=== PATIENT | female | born 1940 | race Caucasian/White ===

== ENCOUNTER → 2016-07-27 | Outpatient (CLI) | payer OTHER | END | disposition home or self-care (01) | LOC: C.LABSPEC 16:43 | PROVIDERS: ATTEND Podiatrist Foot & Ankle Surgery | DX: L60.0 Ingrowing nail (principal) ==

== ENCOUNTER → 2016-08-20 | Outpatient (CLI) | payer OTHER | END | disposition home or self-care (01) | LOC: C.LABSPEC 16:57 | PROVIDERS: ATTEND Podiatrist Foot & Ankle Surgery | DX: L60.0 Ingrowing nail (principal) ==

== ENCOUNTER → 2017-06-18 | Outpatient (CLI) | payer OTHER ==
[~2017-06-18] MED LIST: ASCA500; CALC500C70 PO; CHOL400C7 PO; DICL50TA3 PO; MULT-506 PO; OMEG10007 PO
== END | disposition home or self-care (01) ==
LOC: C.MAMM 11:59
PROVIDERS: ATTEND Nurse Practitioner Family
DX: Z13.820 Encounter for screening for osteoporosis (principal); Z78.0 Asymptomatic menopausal state; M85.89 Other specified disorders of bone density and structure, multiple sites

== ENCOUNTER 2017-07-23 13:20 | Inpatient (IN) | payer OTHER ==
[~2017-07-23] VITALS: Ht 172.7 cm; Wt 104.1 kg
--- NOTE | 2017-07-23 14:04 | DIAGNOSTIC IMAGING REPORT ---
CHEST ONE VIEW PORTABLE CLINICAL HISTORY: 76 years-old Female presenting with palps. TECHNIQUE: Portable upright AP view of the chest was obtained. COMPARISON: 05/30/2015. FINDINGS: Atherosclerosis of aortic arch. Cardiac silhouette enlarged. Mild prominence of pulmonary vasculature. Mildly low lung volumes with hypoventilatory changes. No focal opacity. No large effusion or pneumothorax. Osseous structures normal. IMPRESSION: 1. Mild prominence of pulmonary vasculature could suggest volume overload or elevated left heart pressure. 2. Mildly low lung volumes with hypoventilatory changes. Electronically signed by: Buddy Benitez M.D. 07/23/2017 2:02 PM Dictated Date/Time: 07/23/2017 2:01 PM
[2017-07-23 14:10] LABS: BASO % 0.2 %; BASO ABS # 0.03 K/uL (0-0.2); EOS % 0.4 %; EOS ABS # 0.05 K/uL (0-0.5); HEMATOCRIT 46.4 % (37-47); HEMOGLOBIN 16.4 g/dL (12.0-16.0); IG# 0.05 K/uL (0.00-0.02); LYMPH ABS # 3.03 K/uL (1.2-3.4); MEAN CELL VOLUME 91.7 fL (80-100); MEAN CORPUSCULAR HEMOGLOBIN 32.4 pg (25-34); MEAN CORPUSCULAR HGB CONC 35.3 g/dl (32-36); MEAN PLATELET VOLUME 9.7 fL (7.4-10.4); MONO % 9.3 %; MONO ABS # 1.23 K/uL (0.11-0.59); NEUT % 66.7 %; NEUT ABS # 8.78 K/uL (1.4-6.5); PLATELET COUNT 359 K/uL (130-400); RED CELL DISTRIBUTION WIDTH CV 14.2 % (11.5-14.5); RED CELL DISTRIBUTION WIDTH SD 47.3 fL (36.4-46.3); WHITE BLOOD COUNT 13.17 K/uL (4.8-10.8)
[2017-07-23 14:18] LABS: PTT PATIENT 26.4 SECONDS (21.0-31.0)
[2017-07-23 14:27] LABS: ALBUMIN 3.6 gm/dl (3.4-5.0); ALT/SGPT 88 U/L (12-78); BLOOD UREA NITROGEN 20 mg/dl (7-18); CALCIUM 9.3 mg/dl (8.5-10.1); CARBON DIOXIDE 25 mmol/L (21-32); CREATININE 0.88 mg/dl (0.60-1.20); GLUCOSE 134 mg/dl (70-99); LIPASE 292 U/L (73-393); POTASSIUM 4.4 mmol/L (3.5-5.1); SODIUM 137 mmol/L (136-145)
--- NOTE | 2017-07-23 14:29 | EMERGENCY ROOM VISIT NOTE ---
History Report prepared by Crow: Nati Victor Under the Supervision of: Dr. Jonny Corado D.O. First contact with patient: 13:22 Stated Complaint: CHEST PAIN History of Present Illness The patient is a 76 year old female who presents to the Emergency Room with complaints of constant heart palpitations beginning three days ago. The patient went to her PCP this morning and was found to be in rapid atrial fibrillation and was referred to come to the ED. The patient denies any previous history of atrial fibrillation. The patient was given Cardizem in route to the ED. The patient states she had two Cortizone shots in her hip last week. She notes shortness of breath, chest discomfort, and hot flashes at night but denies any swelling in her legs. Presently, the patient denies any chest pain. 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 Source of History: patient Onset: three days ago Position: other (generalized) Quality: other (palpitations) Timing: constant Associated Symptoms: + chest pain, + SOB Review of Systems See HPI for pertinent positives & negatives. A total of 10 systems reviewed and were otherwise negative. Past Medical & Surgical Medical Problems: (1) Arthritis of spine (2) New onset a-fib (3) New onset a-fib Family History Patient reports no known family medical history. Social History Smoking Status: Never Smoker Marital Status: Occupation Status: retired Current/Historical Medications Scheduled Ascorbic Acid (Vitamin C), DAILY Calcium/Vitamin D (Os-Adam 500 Plus D), 1 TAB PO DAILY Cholecalciferol (Vitamin D 400 Iu), 400 INTER.UNIT PO DAILY Diclofenac (Voltaren), 50 MG PO BID Fish Oil ([place]-3), 1 CAP PO DAILY Multivitamin (Multivitamin), 1 TAB PO DAILY Allergies Coded Allergies: No Known Allergies (Unverified , 07/18/17) Physical Exam Vital Signs Date Time Temp Pulse Resp B/P (MAP) Pulse Ox O2 Delivery O2 Flow Rate FiO2 07/23/17 15:37 77 24 98 07/23/17 15:32 120/88 07/23/17 15:25 88 20 98 07/23/17 15:01 146/115 07/23/17 14:55 84 25 98 07/23/17 14:42 132/92 07/23/17 14:25 88 21 98 07/23/17 14:21 96 Room Air 07/23/17 14:20 95 25 98 07/23/17 14:07 95 07/23/17 13:29 36.6 96 31 137/115 96 Room Air 07/23/17 13:26 137/115 Physical Exam GENERAL: Patient is awake, alert, and in no acute distress. Patient is resting comfortably and showing no signs of anxiety EYES: The conjunctivae are clear. The pupils are round and reactive. EARS, NOSE, MOUTH AND THROAT: The nose is without any evidence of any deformity. Mucous membranes are moist tongue is midline NECK: The neck is nontender and supple. RESPIRATORY: Normal respiratory effort is noted there is no evidence of wheezing rhonchi or rales CARDIOVASCULAR: Regular rate and irregular rhythm noted there no murmurs rubs or gallops normal S1 normal S2 GASTROINTESTINAL: The abdomen is soft. Bowel sounds are present in all quadrants. Abdomen is nontender MUSCULOSKELETAL/EXTREMITIES: There is no evidence of gross deformity full range of motion is noted in the hips and shoulders SKIN: There is no obvious evidence of any rash. There are no petechiae, pallor or cyanosis noted. Trace pedal edema bilaterally. NEUROLOGIC: Patient is awake alert and oriented x3 Medical Decision & Procedures ER Provider Diagnostic Interpretation: Radiology results as stated below per my review and radiologist interpretation: CHEST ONE VIEW PORTABLE FINDINGS: Atherosclerosis of aortic arch. Cardiac silhouette enlarged. Mild prominence of pulmonary vasculature. Mildly low lung volumes with hypoventilatory changes. No focal opacity. No large effusion or pneumothorax. Osseous structures normal. IMPRESSION: 1. Mild prominence of pulmonary vasculature could suggest volume overload or elevated left heart pressure. 2. Mildly low lung volumes with hypoventilatory changes. Electronically signed by: Buddy Benitez M.D. Laboratory Results Test 07/23/17 13:51 Prothrombin Time 10.1 SECONDS (9.0-12.0) Prothromb Time International Ratio 1.0 (0.9-1.1) Direct Bilirubin < 0.1 mg/dl (0-0.2) Total Creatine Kinase 35 U/L (26-192) Creatine Kinase MB 1.0 ng/ml (0.5-3.6) Creatine Kinase MB Ratio 2.9 (0-3.0) Triglycerides Level 183 mg/dl (0-150) Cholesterol Level 225 mg/dl (0-200) HDL Cholesterol 52 mg/dl LDL Cholesterol, Calculated 136 mg/dl VLDL Cholesterol, Calculated 37 mg/dl Cholesterol/HDL Ratio 4.3 Lipase 292 U/L (73-393) Thyroid Stimulating Hormone (TSH) 0.964 uIu/ml (0.300-4.500) Free Thyroxine 1.24 ng/dl (0.80-1.60) Laboratory results per my review. Medications Administered Medications (Trade) Dose Ordered Sig/Karyn Route Start Time Stop Time Status Last Admin Dose Admin Sodium Chloride 1,000 ml @ 50 mls/hr Q20H IV 07/23/17 15:42 08/22/17 15:41 07/23/17 17:27 50 MLS/HR ECG Per My Interpretation Indication: palpitations Rate (beats per minute): 92 Rhythm: atrial fibrillation Findings: other (no PVC, resolution of previous noted ST depressions ) Comparison ECG Date: 06/20/06 Change: changes are new. 12 Lead EKG at PCP office: atrial fibrillation 153 bpm, Diffuse ST segment depression, no PVC. Ambulance prehospital EKG: atrial fibrillation 158 bpm, Diffuse ST segment depression, no PVC. ED Course 1335: The patient was evaluated in room B6. A complete history and physical examination were performed. 1454: I updated the patient on her test results. She is agreeable to the treatment plan. 1503: I discussed the patient's case [place]hawn [place] [place] The patient will be evaluated for further management. Medical Decision Differential diagnosis: Etiologies such as premature contractions, electrolyte abnormality, cardiac dysrhythmia, thyroid dysfunction, pulmonary embolism, infection, gastrointestinal, as well as others were entertained. Nursing notes reviewed. Additional history is obtained from the prehospital personnel. The patient's information from the primary care physician's office was also reviewed. The patient is a 76-year-old female who had palpitations over the last few days. She has no history of atrial fibrillation and was sent to the emergency department because of new onset atrial fibrillation with rapid ventricular response. Her initial EKG showed ST segment abnormalities which I feel are consistent with rate related ischemia. I discussed the patient's laboratory and radiographic studies with her. I ordered IV Cardizem to be given to the patient while she was en route via medic command phone call with the prehospital personnel. The patient's symptoms significantly improved upon arrival. Her ST segment abnormalities improved as well. I discussed the patient's laboratory and radiographic studies with her. I discussed her case with the on-call [facility] hospitalist group. They have agreed to evaluate the patient in the emergency department for further management and disposition. Medication Reconcilliation Current Medication List: was personally reviewed by me Blood Pressure Screening Patient's blood pressure: Elevated blood pressure Blood pressure disposition: Elevated BP felt to be situational Consults Time Called: [phone] Consulting Physician: Dr. Rayshawn Haq Returned Call: [phone] I discussed the patient's case with Dr. Rayshawn Haq. The patient will be evaluated for further management. Impression Primary Impression: Atrial fibrillation with rapid ventricular response Scribe Attestation The scribe's documentation has been prepared under my direction and personally reviewed by me in its entirety. I confirm that the note above accurately reflects all work, treatment, procedures, and medical decision making performed by me. Departure Information Dispostion Being Evaluated By Hospitalist Referrals Sofia Han (PCP)
[2017-07-23 14:36] LABS: ALKALINE PHOSPHATASE 135 U/L (45-117); AST/SGOT 32 U/L (15-37); TOTAL PROTEIN 7.8 gm/dl (6.4-8.2)
[2017-07-23] MEDS ORDERED: SODIUM CHLORIDE 0.9% 1000ML 1,000 ML IV SCH (15:42)
[2017-07-23] MEDS ORDERED: POLYETHYLENE (MIRALAX) 17 GM PACK PO PRN (15:45)
[2017-07-23] MEDS ORDERED: NITROGLYCERIN 0.4 MG SL PER TAB CHARGE SL PRN (15:45)
[2017-07-23] MEDS ORDERED: ZOLPIDEM TARTRATE 5 MG TAB PO PRN ×2 (15:45)
[2017-07-23] MEDS ORDERED: ONDANSETRON INJ 2 MG/ML 2 ML VIAL IV PRN (15:45)
[2017-07-23] MEDS ORDERED: ALUMINUM/MAGNESIUM/SIMETH (MAALOX MAX) 30 ML UDC PO PRN (15:45)
[2017-07-23] MEDS ORDERED: MAGNESIUM HYDROXIDE SUSP 30 ML UDC PO PRN (15:45)
[2017-07-23] MEDS ORDERED: ACETAMINOPHEN 325 MG TAB PO PRN (15:45)
[2017-07-23] MEDS ORDERED: DILTIAZEM BOLUS / DRIP IV SCH (16:00)
--- NOTE | 2017-07-23 16:07 | History and Physical ---
History & Physical Date & Time of Service: Jul 23, 2017 at 15:52 Chief Complaint: Chest Pain Primary Care Physician: Sofia Han History of Present Illness Source: patient, family, hospital records 76-year-old female with past medical history of arthritis and moderate obesity presented to the hospital with new onset atrial fibrillation with RVR. Patient had to cortisol shots in the pain clinic one was on July 18 and one was 2 days ago. Said that she developed some palpitation about 4 days ago. Associated with dizziness, chest heaviness 4 out of 10, and shortness of breath. The palpitation episodes comes and goes there is no relieving or aggravating factors. For her second cortisone shot she mentioned that to the pain management physician who told her to go to her primary care physician and get an EKG. Patient went today to her primary care physician to get an EKG and was found to have new onset atrial fibrillation with RVR. She was sent to the hospital for further evaluation. Her pressure was noticed to be borderline elevated in ED She does not smoke or drink Has strong family history of diabetes but no family history of heart disease Family History Patient reports no known family medical history. Social History Smoking Status: Never Smoker Marital Status: Housing status: lives alone Occupational Status: retired Multi-Drug Resistant Organisms History of MDRO: No Allergies Coded Allergies: No Known Allergies (Unverified , 07/18/17) Home Medications Scheduled Ascorbic Acid (Vitamin C), DAILY Calcium/Vitamin D (Os-Adam 500 Plus D), 1 TAB PO DAILY Cholecalciferol (Vitamin D 400 Iu), 400 INTER.UNIT PO DAILY Diclofenac (Voltaren), 50 MG PO BID Fish Oil ([place]-3), 1 CAP PO DAILY Multivitamin (Multivitamin), 1 TAB PO DAILY Review of Systems Review of system Constitutional: No fever / no chills / no sweats / no weakness / no fatigue Eyes: no blurring of vision / no eye pain / no discharge / no redness ENT: no hearing loss / no epistaxis /no swallowing problems Respiratory: no cough / no wheezing / no SOB / no hemoptysis Cardiovascular: As mentioned in HPI, palpitation associated with shortness of breath and chest heaviness n Abdomen: no pain / no nausea / no vomiting / no constipation Musculoskeletal: no joint pain / no muscle pain / no joint swelling Genitourinary: no dysuria / no incontinence / no urinary retention Neurologic: no focal weakness / no numbness/tingling / no ataxia Psychiatric: no depression symptoms / no anxiety / no insomnia Endocrine: no excessive thirst / no excessive urination Hematologic: no abnormal bleeding / no bruising / no LN swelling Skin: No rash / no pallor Physical Exam Vital Signs Date Time Temp Pulse Resp B/P (MAP) Pulse Ox O2 Delivery O2 Flow Rate FiO2 07/23/17 14:21 96 Room Air 07/23/17 14:20 95 25 98 07/23/17 14:07 95 07/23/17 13:29 36.6 96 31 137/115 96 Room Air 07/23/17 13:26 137/115 Physical examination General patient appears to be comfortable, not in acute distress HEENT: Atraumatic , normocephalic /no jaundice /no pallor /anicteric /no dry mucous membrane /normal external ear inspection Neck: Supple /no swelling /central trach Heart: Irregular irregularity with tachycardia/no gallop /no rub /no murmur Lungs: Clear to auscultation bilaterally/normal chest with expansion/no rhonchi/ no rales/no wheezing/no use of accessory muscles of respiration Abdomen: Soft/nontender/no guarding/no rebound/no organomegaly/no pulsatile mass Musculoskeletal: No swelling/no edema/no tenderness/normal range of motion Neuro exam: Awake alert oriented 3/cranial nerves II through XII appear to be intact/sensation intact/moves all extremities/no abnormal movements Psychiatric evaluation: No depressed mood/normal affect Skin: No rash on exposed skin area/no erythema Extremity: Normal pulse/no pitting edema/no clubbing or cyanosis Endocrine/lymphatic: No obvious lymphadenopathy /no lymphedema Diagnostics Laboratory Results Results Past 24 Hours Test 07/23/17 13:51 07/23/17 15:42 Range/Units White Blood Count 13.17 4.8-10.8 K/uL Red Blood Count 5.06 4.2-5.4 M/uL Hemoglobin 16.4 12.0-16.0 g/dL Hematocrit 46.4 37-47 % Mean Corpuscular Volume 91.7 80-100 fL Mean Corpuscular Hemoglobin 32.4 25-34 pg Mean Corpuscular Hemoglobin Concent 35.3 32-36 g/dl Platelet Count 359 130-400 K/uL Mean Platelet Volume 9.7 7.4-10.4 fL Neutrophils (%) (Auto) 66.7 % Lymphocytes (%) (Auto) 23.0 % Monocytes (%) (Auto) 9.3 % Eosinophils (%) (Auto) 0.4 % Basophils (%) (Auto) 0.2 % Neutrophils # (Auto) 8.78 1.4-6.5 K/uL Lymphocytes # (Auto) 3.03 1.2-3.4 K/uL Monocytes # (Auto) 1.23 0.11-0.59 K/uL Eosinophils # (Auto) 0.05 0-0.5 K/uL Basophils # (Auto) 0.03 0-0.2 K/uL RDW Standard Deviation 47.3 36.4-46.3 fL RDW Coefficient of Variation 14.2 11.5-14.5 % Immature Granulocyte % (Auto) 0.4 % Immature Granulocyte # (Auto) 0.05 0.00-0.02 K/uL Prothrombin Time 10.1 9.0-12.0 SECONDS Prothromb Time International Ratio 1.0 0.9-1.1 Activated Partial Thromboplast Time 26.4 21.0-31.0 SECONDS Partial Thromboplastin Ratio 1.0 Sodium Level 137 136-145 mmol/L Potassium Level 4.4 3.5-5.1 mmol/L Chloride Level 106 98-107 mmol/L Carbon Dioxide Level 25 21-32 mmol/L Anion Gap 6.0 3-11 mmol/L Blood Urea Nitrogen 20 7-18 mg/dl Creatinine 0.88 0.60-1.20 mg/dl Est Creatinine Clear Calc Drug Dose 70.2 ml/min Estimated GFR () 74.5 Estimated GFR (Non- 64.3 BUN/Creatinine Ratio 22.6 10-20 Random Glucose 134 70-99 mg/dl Calcium Level 9.3 8.5-10.1 mg/dl Magnesium Level 2.4 1.8-2.4 mg/dl Total Bilirubin 0.4 0.2-1 mg/dl Direct Bilirubin < 0.1 0-0.2 mg/dl Aspartate Amino Transf (AST/SGOT) 32 15-37 U/L Alanine Aminotransferase (ALT/SGPT) 88 12-78 U/L Alkaline Phosphatase 135 45-117 U/L Total Creatine Kinase 35 26-192 U/L Creatine Kinase MB 1.0 0.5-3.6 ng/ml Creatine Kinase MB Ratio 2.9 0-3.0 Troponin I < 0.015 0-0.045 ng/ml Total Protein 7.8 6.4-8.2 gm/dl Albumin 3.6 3.4-5.0 gm/dl Lipase 292 73-393 U/L Thyroid Stimulating Hormone (TSH) 0.964 0.300-4.500 uIu/ml Free Thyroxine 1.24 0.80-1.60 ng/dl Diagnostic Radiology EKG showed atrial fibrillation with some nonspecific ST-T wave changes Impression Assessment and Plan 76-year-old female presented to the emergency room with new onset atrial fibrillation with RVR Assessment New onset atrial fibrillation with RVR Borderline elevated blood pressure Arthritis Mild obesity Clinically suspected obstructive sleep apnea Plan Admit patient to telemetry under observation status Order 2D echo Discussed with patient benefits and risks of anticoagulation, will start with heparin drip, and be switched to Eliquis before the Start patient on rate controlling agents, Cardizem drip plus oral metoprolol, can be switched to Toprol XL before discharge obtain serial cardiac enz NTG SL/topical prn CP consult desk clerks supervisor pain management Check hemoglobin A1c/lipids to stratify patient risk factors repeat EKG prn chest pain Resuscitation Status FULL RESUSCITATION VTE Prophylaxis VTE Risk Assessment Done? Y/N: Yes Risk Level: Moderate
[2017-07-23 16:25] VITALS: BP 151/83; PULSE 126; TEMP 36.6; O2SAT 95; BMI 35.5
[2017-07-23] MEDS ORDERED: IV FLUIDS COMPLETED PRN (16:30)
[2017-07-23] MEDS ORDERED: HEPARIN IV BOLUS 6,000 UNIT in SYRINGE 0 ML IV ONE (17:30)
[2017-07-23] MEDS: HEPARIN 25,000 UNIT/500ML D5W 500 ML IV PRN (17:36)
[2017-07-23] MEDS: DILTIAZEM HCL INJ 125 MG in DEXTROSE 5% 100ML IV PRN (17:37)
[2017-07-23 19:45] VITALS: BP 107/70; PULSE 76; TEMP 36.5; O2SAT 92
[2017-07-23] MEDS: METOPROLOL TARTRATE 50 MG TAB PO SCH (22:07)
[2017-07-23 23:56] VITALS: BP 106/60; PULSE 74; TEMP 36.6; O2SAT 95
[2017-07-23 23:59] VITALS: O2SAT 95
[2017-07-24] VITALS (9 sets, daily range): BP systolic 110–137; BP diastolic 70–87; PULSE 66–104; TEMP 36.4–37; O2SAT 93–97; Ht 172.7 cm; Wt 104.1 kg
[2017-07-24 00:44] LABS: PTT PATIENT 47.1 SECONDS (21.0-31.0)
[2017-07-24] MEDS: HEPARIN 25,000 UNIT/500ML D5W 500 ML IV PRN ×2 (06:56→09:44)
[2017-07-24 07:08] LABS: BASO % 0.2 %; BASO ABS # 0.03 K/uL (0-0.2); EOS % 0.4 %; EOS ABS # 0.06 K/uL (0-0.5); HEMATOCRIT 46.1 % (37-47); HEMOGLOBIN 15.9 g/dL (12.0-16.0); IG# 0.04 K/uL (0.00-0.02); LYMPH % 24.4 %; LYMPH ABS # 3.32 K/uL (1.2-3.4); MEAN CELL VOLUME 91.1 fL (80-100); MEAN CORPUSCULAR HEMOGLOBIN 31.4 pg (25-34); MEAN CORPUSCULAR HGB CONC 34.5 g/dl (32-36); MEAN PLATELET VOLUME 9.7 fL (7.4-10.4); MONO % 6.3 %; MONO ABS # 0.86 K/uL (0.11-0.59); NEUT % 68.4 %; NEUT ABS # 9.28 K/uL (1.4-6.5); PLATELET COUNT 372 K/uL (130-400); RED CELL DISTRIBUTION WIDTH CV 14.3 % (11.5-14.5); RED CELL DISTRIBUTION WIDTH SD 47.7 fL (36.4-46.3); WHITE BLOOD COUNT 13.59 K/uL (4.8-10.8)
[2017-07-24] MEDS ORDERED: PERFLUTREN LIPID MICROSPHERE (DEFINITY) IV ONE (07:24)
[2017-07-24 07:44] LABS: ALBUMIN 3.7 gm/dl (3.4-5.0); CALCIUM 9.2 mg/dl (8.5-10.1); CREATININE 0.83 mg/dl (0.60-1.20); POTASSIUM 4.2 mmol/L (3.5-5.1)
[2017-07-24 07:47] LABS: PHOSPHORUS 3.2 mg/dl (2.5-4.9); TOTAL PROTEIN 7.9 gm/dl (6.4-8.2)
--- NOTE | 2017-07-24 08:26 | Hospitalist Progress Note ---
Hospitalist Progress Note Date of Service Jul 24, 2017. (Brittany Marroquin PA-C) Subjective Pt evaluation today including: conversation w/ patient, conversation w/ family , physical exam, chart review, lab review, review of studies Pain: None PO Intake: Good Voiding: no voiding problems The patient was seen and examined this morning. Pt reports doing well today, but that she has felt an occasional flutter in her chest. She denies any palpitations, chest pain or shortness of breath. She reports not sleeping well last night and is requesting a sleep aid. She has used tylenol pm at home. Pt notes she has felt palpitation in her chest for several days this past week when she lays down to go to bed. She is agreeable to trying ambien louissindhu. Her daughter is present with her at bedside and all their questions and concerns were addressed. Discussion was also held regarding anticoagulation and the cost of copay for Eliquis. She is willing to pay out of pocket $100 per month for Eliquis vs coumadin and INR checks. Constitutional: No fever, No chills, No sweats, No fatigue Eyes: No redness, No diplopia ENT: No nasal symptoms, No sore throat Respiratory: No cough, No sputum, No shortness of breath Cardiovascular: + problem reported (occasional flutter), No chest pain, No palpitations Abdomen: No pain, No nausea, No vomiting, No diarrhea, No constipation Musculoskeletal: No joint pain, No muscle pain, No swelling Female : No dysuria Neurologic: No weakness, No numbness/tingling Psychiatric: No depression symptoms, No anxiety Endo: No fatigue (Brittany Marroquin PA-C) Objective Vital Signs Date Time Temp Pulse Resp B/P (MAP) Pulse Ox O2 Delivery O2 Flow Rate FiO2 07/24/17 07:45 36.5 100 18 110/70 (83) 93 07/24/17 04:00 Room Air 07/24/17 03:34 36.4 104 18 118/71 (87) 93 Room Air 07/23/17 23:59 95 Room Air 07/23/17 23:56 36.6 74 18 106/60 (75) 95 Room Air 07/23/17 20:03 Room Air 07/23/17 19:45 36.5 76 17 107/70 (82) 92 Room Air 07/23/17 16:40 36.6 105 24 126/99 98 07/23/17 16:25 36.6 126 18 151/83 95 Room Air 07/23/17 16:14 105 24 126/99 98 Room Air 07/23/17 15:37 77 24 98 07/23/17 15:32 120/88 07/23/17 15:25 88 20 98 07/23/17 15:01 146/115 07/23/17 14:55 84 25 98 07/23/17 14:42 132/92 07/23/17 14:25 88 21 98 07/23/17 14:21 96 Room Air 07/23/17 14:20 95 25 98 07/23/17 14:07 95 07/23/17 13:29 36.6 96 31 137/115 96 Room Air 07/23/17 13:26 137/115 (Brittany Marroquin PA-C) Physical Exam General Appearance: WD/WN, no apparent distress Eyes: PERRL, EOMI ENT: hearing grossly normal, pharynx normal Neck: no adenopathy, no JVD Respiratory/Chest: lungs clear, no respiratory distress, no accessory muscle use Cardiovascular: no JVD, no murmur, + irregularly irregular (rate controlled in 90s ) Abdomen: normal bowel sounds, non tender, soft Extremities: non-tender, no pedal edema, no calf tenderness Neurologic/Psychiatric: alert, normal mood/affect, oriented x 3 Skin: normal color, warm/dry (Brittany Marroquin PA-C) Laboratory Results Last 24 Hours Test 07/23/17 13:51 07/23/17 18:21 07/24/17 00:09 07/24/17 06:31 White Blood Count 13.17 K/uL 13.59 K/uL Red Blood Count 5.06 M/uL 5.06 M/uL Hemoglobin 16.4 g/dL 15.9 g/dL Hematocrit 46.4 % 46.1 % Mean Corpuscular Volume 91.7 fL 91.1 fL Mean Corpuscular Hemoglobin 32.4 pg 31.4 pg Mean Corpuscular Hemoglobin Concent 35.3 g/dl 34.5 g/dl Platelet Count 359 K/uL 372 K/uL Mean Platelet Volume 9.7 fL 9.7 fL Neutrophils (%) (Auto) 66.7 % 68.4 % Lymphocytes (%) (Auto) 23.0 % 24.4 % Monocytes (%) (Auto) 9.3 % 6.3 % Eosinophils (%) (Auto) 0.4 % 0.4 % Basophils (%) (Auto) 0.2 % 0.2 % Neutrophils # (Auto) 8.78 K/uL 9.28 K/uL Lymphocytes # (Auto) 3.03 K/uL 3.32 K/uL Monocytes # (Auto) 1.23 K/uL 0.86 K/uL Eosinophils # (Auto) 0.05 K/uL 0.06 K/uL Basophils # (Auto) 0.03 K/uL 0.03 K/uL RDW Standard Deviation 47.3 fL 47.7 fL RDW Coefficient of Variation 14.2 % 14.3 % Immature Granulocyte % (Auto) 0.4 % 0.3 % Immature Granulocyte # (Auto) 0.05 K/uL 0.04 K/uL Prothrombin Time 10.1 SECONDS Prothromb Time International Ratio 1.0 Activated Partial Thromboplast Time 26.4 SECONDS 47.1 SECONDS Partial Thromboplastin Ratio 1.0 1.8 Sodium Level 137 mmol/L 138 mmol/L Potassium Level 4.4 mmol/L 4.2 mmol/L Chloride Level 106 mmol/L 106 mmol/L Carbon Dioxide Level 25 mmol/L 23 mmol/L Anion Gap 6.0 mmol/L 9.0 mmol/L Blood Urea Nitrogen 20 mg/dl 16 mg/dl Creatinine 0.88 mg/dl 0.83 mg/dl Est Creatinine Clear Calc Drug Dose 70.2 ml/min 73.2 ml/min Estimated GFR () 74.5 79.9 Estimated GFR (Non- 64.3 69.0 BUN/Creatinine Ratio 22.6 19.2 Random Glucose 134 mg/dl 141 mg/dl Calcium Level 9.3 mg/dl 9.2 mg/dl Magnesium Level 2.4 mg/dl 2.4 mg/dl Total Bilirubin 0.4 mg/dl 0.8 mg/dl Direct Bilirubin < 0.1 mg/dl Aspartate Amino Transf (AST/SGOT) 32 U/L 36 U/L Alanine Aminotransferase (ALT/SGPT) 88 U/L 86 U/L Alkaline Phosphatase 135 U/L 132 U/L Total Creatine Kinase 35 U/L Creatine Kinase MB 1.0 ng/ml Creatine Kinase MB Ratio 2.9 Troponin I < 0.015 ng/ml Total Protein 7.8 gm/dl 7.9 gm/dl Albumin 3.6 gm/dl 3.7 gm/dl Triglycerides Level 183 mg/dl Cholesterol Level 225 mg/dl HDL Cholesterol 52 mg/dl LDL Cholesterol, Calculated 136 mg/dl VLDL Cholesterol, Calculated 37 mg/dl Cholesterol/HDL Ratio 4.3 Lipase 292 U/L Thyroid Stimulating Hormone (TSH) 0.964 uIu/ml Free Thyroxine 1.24 ng/dl Urine Color YELLOW Urine Appearance CLEAR Urine pH 5.0 Urine Specific [place] 1.017 Urine Protein NEG Urine Glucose (UA) NEG Urine Ketones NEG Urine Occult Blood NEG Urine Nitrite NEG Urine Bilirubin NEG Urine Urobilinogen NEG Urine Leukocyte Esterase NEG Phosphorus Level 3.2 mg/dl Globulin 4.2 gm/dl Albumin/Globulin Ratio 0.9 (Brittany Marroquin, CELESTINO) Assessment and Plan 76-year-old female presented to the emergency room with new onset atrial fibrillation with RVR New onset atrial fibrillation with RVR Elevated BP - resolved - Admit patient to telemetry under observation status - 2D echo complete: * -- Conclusions -- * There is moderate concentric left ventricular hypertrophy. * Left ventricular systolic function is normal. * The left atrium is moderately dilated. * The right atrium is mildly dilated. * Right ventricular systolic pressure is normal. * The inferior vena cava is mildly dilated. - Upon admission benefits and risks of anticoagulation were discussed - I readdressed anticoagulation with the patient. Case management has checked copay for Eliquis and this is $100 per month, the patient is agreeable to paying this as she does not want to go on coumadin and require frequent INR checks. Appreciate cardiology recs - Will stop heparin gtt and start Eliquis 5 mg BID today - Rate controlling agents: Cardizem drip planned to turn off once rate <80 today. Continue oral metoprolol, can be switched to Toprol XL before discharge - Troponin initially negative, recheck with am labs also negative - NTG SL/topical prn CP HLD - Lipids elevated with cholesterol at 225, triglycerides also elevated at 183 - Will start simvastatin 40 mg po HS DM II - New onset - Check hemoglobin A1c= 6.5 - Glucose has been running around 130s-140s. Will switch diet to a heart healthy diabetic diet. Will need to reinforce diet and exercise with the patient prior to discharge home. - Check accuchecks achs while here. Arthritis - Pain management - pt does follow as an outpatient. recently had cortisone injection and likely elevated glucose slightly. Mild obesity Clinically suspected obstructive sleep apnea DVT ppx: heparin, teds, scds CODE STATUS: FULL Disposition: From home, likely discharge tomorrow (Brittany Marroquin, PAJairon) Supervising Note Dr. Butler I performed a history and physical examination on the patient. I reviewed above note and agree with it. I discussed plan with APC and patient. During my face to face encounter with the patient, I answered all of the patient's questions. Patient had multiple questions and these were all answered. She was very pleasant. As I left the room, i was informed by nurse that he heart rate has been elevated in the 120-150. I added diltiazem 60 mg PO TID. I discussed with cardiology who also recommended this course of action as well. Will monitor her heart rate. If it is controlled, may be discharged tomorrow. (Jamel Butler M.D.)
[2017-07-24] MEDS: METOPROLOL TARTRATE 50 MG TAB PO SCH ×2 (09:26→20:45)
[2017-07-24 09:43] LABS: HEMOGLOBIN A1C 6.2 % (4.5-5.6)
[2017-07-24] MEDS: DILTIAZEM HCL INJ 125 MG in DEXTROSE 5% 100ML IV PRN (09:44)
--- NOTE | 2017-07-24 11:11 | Cardiology Consultation ---
Cardiology Consultation Date of Consultation: Jul 24, 2017. Reason for Consultation: New onset atrial fibrillation with RVR Pt evaluation today including: conversation w/ patient, physical exam, chart review, lab review, review of inpatient medication list History of Present Illness 76 yo female PMH of osteoarthritis of the spine transferred to ED by PCP recommendation when she was found to be in afib with RVR on EKG in the office yesterday, however rate not noted on outpatient record. On arrival to ED rate was high 90s. She reports that she has been experiencing some "fluttering" in her chest and in her peripheries starting 1 week ago, which comes and goes and mostly bothers her at night. She states she has felt these "flutterings" in her chest in the past but never really though much of them. She denies chest pain however describes some chest pressure as though "an elephant were on my chest" which she says resolved after being given ASA yesterday. She states that she has been breathing a bit more heavily over this time and reports night sweats and cold extremities. Aside from some restlessness and fatigue, she denies any associated symptoms such as syncope, pre-syncope, peripheral edema, orthopnea, or PND. She denies any recent illnesses. She works out with [employer] and states that the last few classes she has had to stop earlier than usual from fatigue. Past Medical/Surgical History Medical Problems: (1) Arthritis of spine (2) New onset a-fib Family History Patient reports no known family medical history. Social History Smoking Status: Never Smoker History of Alcohol Use: No Review of Systems Constitutional: + weakness, + fatigue, No fever, No chills, No sweats, No weight loss, No problem reported Cardiac: + palpitations, No chest pain, No orthopnea, No PND, No edema, No claudication, No problem reported Abdomen: No pain, No nausea, No vomiting, No diarrhea, No constipation, No GI bleeding, No problem reported Neurologic: No memory loss, No paralysis, No weakness, No numbness/tingling, No vertigo, No balance problems, No problem reported All Other Systems: Reviewed and Negative Allergies Coded Allergies: No Known Allergies (Unverified , 07/18/17) Medications Current Inpatient Medications Medications (Trade) Dose Ordered Sig/Karyn Route Start Time Stop Time Status Last Admin Dose Admin Sodium Chloride 1,000 ml @ 50 mls/hr Q20H IV 07/23/17 15:42 08/22/17 15:41 07/23/17 17:27 50 MLS/HR Acetaminophen (Tylenol Tab) 650 mg Q4H PRN PO 07/23/17 15:45 08/22/17 15:44 Al Hydrox/Mg Hydrox/Simethicone (Maalox Max Susp) 15 ml Q4H PRN PO 07/23/17 15:45 08/22/17 15:44 Magnesium Hydroxide (Milk Of Magnesia Susp) 30 ml Q12H PRN PO 07/23/17 15:45 08/22/17 15:44 Zolpidem Tartrate (Ambien Tab) 5 mg HSZ PRN PO 07/23/17 15:45 08/22/17 15:44 Ondansetron HCl (Zofran Inj) 4 mg Q6H PRN IV 07/23/17 15:45 08/22/17 15:44 Nitroglycerin (Nitrostat Tab) 0.4 mg UD PRN SL 07/23/17 15:45 08/22/17 15:44 Polyethylene (Miralax Powder Packet) 17 gm DAILY PRN PO 07/23/17 15:45 08/22/17 15:44 Metoprolol Tartrate (Lopressor Tab) 50 mg BID PO 07/23/17 21:00 08/22/17 20:59 07/24/17 09:26 50 MG Miscellaneous (Iv Fluids Completed) 1 ea PRN PRN N/A 07/23/17 16:30 07/23/18 16:29 Diltiazem HCl 125 mg/Dextrose 125 ml @ 0 mls/hr Q0M PRN IV 07/23/17 17:00 08/22/17 16:59 07/24/17 09:44 10 MLS/HR Heparin Sodium/ Dextrose 500 ml @ 29 mls/hr [id number] PRN IV 07/23/17 17:30 08/22/17 17:29 07/24/17 09:44 29 MLS/HR Physical Exam Vital Signs Past 12 Hours Date Time Temp Pulse Resp B/P (MAP) Pulse Ox O2 Delivery O2 Flow Rate FiO2 07/24/17 08:00 Room Air 07/24/17 07:45 36.5 100 18 110/70 (83) 93 07/24/17 04:00 Room Air 07/24/17 03:34 36.4 104 18 118/71 (87) 93 Room Air 07/23/17 23:59 95 Room Air 07/23/17 23:56 36.6 74 18 106/60 (75) 95 Room Air Constitutional: General Apperance: heathly-appearing, well-nourished, obese Level of Distress: NAD Psychiatric: Mental Status: active & alert, normal mood Orientation: oriented except where noted Head: normocephalic, atraumatic ENMT: hearing grossly normal Neck: supple, trachea midline, no masses, FROM Lungs: Respiratory effort: no dyspnea, good air movement Auscultation: breath sounds normal, CTA except as noted, no wheezing, no rales/crackles, no rhonchi Cardiovascular: Apical Impulse: not displaced Heart Auscultation: normal S1, normal S2, no murmurs, no rubs, no gallops, irregular rate rhythm Peripheral Pulses: Bruits: none appreciated Dorsalis Pedis Pulse: normal on the left, normal on the right Abdomen: Bowel Sounds: normal Inspection & Palpation: soft, non-distended Musculoskeletal: normal Neurologic: Cranial Nerves: grossly intact Sensation: grossly intact Data Laboratory Results: Last 24 Hours Test 07/23/17 13:51 07/23/17 18:21 07/24/17 00:09 07/24/17 06:31 White Blood Count 13.17 K/uL 13.59 K/uL Red Blood Count 5.06 M/uL 5.06 M/uL Hemoglobin 16.4 g/dL 15.9 g/dL Hematocrit 46.4 % 46.1 % Mean Corpuscular Volume 91.7 fL 91.1 fL Mean Corpuscular Hemoglobin 32.4 pg 31.4 pg Mean Corpuscular Hemoglobin Concent 35.3 g/dl 34.5 g/dl Platelet Count 359 K/uL 372 K/uL Mean Platelet Volume 9.7 fL 9.7 fL Neutrophils (%) (Auto) 66.7 % 68.4 % Lymphocytes (%) (Auto) 23.0 % 24.4 % Monocytes (%) (Auto) 9.3 % 6.3 % Eosinophils (%) (Auto) 0.4 % 0.4 % Basophils (%) (Auto) 0.2 % 0.2 % Neutrophils # (Auto) 8.78 K/uL 9.28 K/uL Lymphocytes # (Auto) 3.03 K/uL 3.32 K/uL Monocytes # (Auto) 1.23 K/uL 0.86 K/uL Eosinophils # (Auto) 0.05 K/uL 0.06 K/uL Basophils # (Auto) 0.03 K/uL 0.03 K/uL RDW Standard Deviation 47.3 fL 47.7 fL RDW Coefficient of Variation 14.2 % 14.3 % Immature Granulocyte % (Auto) 0.4 % 0.3 % Immature Granulocyte # (Auto) 0.05 K/uL 0.04 K/uL Prothrombin Time 10.1 SECONDS Prothromb Time International Ratio 1.0 Activated Partial Thromboplast Time 26.4 SECONDS 47.1 SECONDS Partial Thromboplastin Ratio 1.0 1.8 Sodium Level 137 mmol/L 138 mmol/L Potassium Level 4.4 mmol/L 4.2 mmol/L Chloride Level 106 mmol/L 106 mmol/L Carbon Dioxide Level 25 mmol/L 23 mmol/L Anion Gap 6.0 mmol/L 9.0 mmol/L Blood Urea Nitrogen 20 mg/dl 16 mg/dl Creatinine 0.88 mg/dl 0.83 mg/dl Est Creatinine Clear Calc Drug Dose 70.2 ml/min 73.2 ml/min Estimated GFR () 74.5 79.9 Estimated GFR (Non- 64.3 69.0 BUN/Creatinine Ratio 22.6 19.2 Random Glucose 134 mg/dl 141 mg/dl Calcium Level 9.3 mg/dl 9.2 mg/dl Magnesium Level 2.4 mg/dl 2.4 mg/dl Total Bilirubin 0.4 mg/dl 0.8 mg/dl Direct Bilirubin < 0.1 mg/dl Aspartate Amino Transf (AST/SGOT) 32 U/L 36 U/L Alanine Aminotransferase (ALT/SGPT) 88 U/L 86 U/L Alkaline Phosphatase 135 U/L 132 U/L Total Creatine Kinase 35 U/L Creatine Kinase MB 1.0 ng/ml Creatine Kinase MB Ratio 2.9 Troponin I < 0.015 ng/ml Total Protein 7.8 gm/dl 7.9 gm/dl Albumin 3.6 gm/dl 3.7 gm/dl Triglycerides Level 183 mg/dl Cholesterol Level 225 mg/dl HDL Cholesterol 52 mg/dl LDL Cholesterol, Calculated 136 mg/dl VLDL Cholesterol, Calculated 37 mg/dl Cholesterol/HDL Ratio 4.3 Lipase 292 U/L Thyroid Stimulating Hormone (TSH) 0.964 uIu/ml Free Thyroxine 1.24 ng/dl Urine Color YELLOW Urine Appearance CLEAR Urine pH 5.0 Urine Specific [place] 1.017 Urine Protein NEG Urine Glucose (UA) NEG Urine Ketones NEG Urine Occult Blood NEG Urine Nitrite NEG Urine Bilirubin NEG Urine Urobilinogen NEG Urine Leukocyte Esterase NEG Estimated Average Glucose 131 mg/dl Hemoglobin A1c 6.2 % Phosphorus Level 3.2 mg/dl Globulin 4.2 gm/dl Albumin/Globulin Ratio 0.9 Test 07/24/17 08:51 Troponin I < 0.015 ng/ml Imaging: EKG: Telemetry reviewed: Assessment & Plan 76 yo female with newly discovered atrial fibrillation after presenting to PCP with palpitations, fatigue, and night sweats x 1 week. Atrial fibrillation Will await echo results No obvious cause of afib at this time; cardiac workup thus far normal, no recent illness, changes to medications, etc. Symptoms seem to have been present for some time and have not really kept her from her usual activities. Rate since admission not overly concerning. Rate control with metoprolol on discharge should suffice. Patient on moderate dosing at the moment. Agree with primary team to convert heparin to other anticoagulant (eliquis, etc. ) Discussed risks and benefits of these medications Will follow up in outpatient clinic [facility] per patient request. ATTENDING NOTE: I saw and examined the patient with Dr. De Souza. Briefly, patient developed a sensation of palpitations and increasing fatigue several days ago. She was eventually discovered to have atrial fibrillation with high ventricular rates. She otherwise has been feeling well without additional constitutional symptoms. She did not report symptoms of limiting dyspnea or significant chest discomfort. The remainder evaluation to date has been unremarkable. An echocardiogram was completed this afternoon which demonstrated an element of left ventricular hypertrophy but no significant valvular disease. Possible she has had some occult hypertension over the years which has predisposed her to some left atrial enlargement and atrial fibrillation. Clearly her age plays a role as well. She has minimal symptoms. At this point I think adopting a rate control strategy is the best option. Hopefully we can reduce her diltiazem over the course of the day and monitor her response to oral metoprolol. We can always add oral diltiazem as well if necessary. She was started on heparin but should be transitioned to an oral agent for continued anticoagulation given her chads Vasc score of 3. Warfarin or 1 of the novel oral anticoagulants would be acceptable given her normal renal function. Better compliance may be obtained with Xarelto as a once a day agent. Resident Tracking Resident Involvement: Resident Care Provided Care Provided: Adult Hospital Medicine
--- NOTE | 2017-07-24 12:10 | ECHOCARDIOGRAM REPORT ---
*NOTICE TO RECEIVING DEMOCRAT AGENCY This information is strictly Confidential and protected under [place] law. [place] law prohibits you from making any further disclosure of this information unless further disclosure is expressly permitted by the written consent of the person to whom it pertains or is authorized by law. A general authorization for the release of medical or other information is not sufficient for this purpose. Hospital accepts no responsibility if the information is made available to any other person, INCLUDING THE PATIENT. Interpretation Summary * Name: WYATT VILLALOBOS Study Date: 07/24/2017 06:49 AM BP: 110/70 mmHg * Patient Location: [facility] HR: 102 * : 1940 (M/d/yyyy) Gender: Female Height: 68 in * Age: 76 yrs Ethnicity: CA Weight: 232 lb * Ordering Physician: VICENTE MARTÍNEZ MD * Performed By: Delores Eugene RCS * * Reason For Study: A-FIB * BSA: 2.2 m2 * -- Conclusions -- * There is moderate concentric left ventricular hypertrophy. * Left ventricular systolic function is normal. * The left atrium is moderately dilated. * The right atrium is mildly dilated. * Right ventricular systolic pressure is normal. * The inferior vena cava is mildly dilated. Procedure Details * A complete two-dimensional transthoracic echocardiogram was performed (2D, M-mode, Doppler and color flow Doppler). * A contrast injection of Definity was performed to improve assessment of LV function. * Contrast was injected into an intravenous site in the right arm. * One vial of Definity ultrasound contrast was diluted in normal saline to a total volume of 10 ml. A total of '2' ml of solution was administered during imaging. * Lot # [id number] of Definity utilized for procedure. * Expiration date 1 JUL 15. * The attending nurse who injected the contrast agent was XU Lockhart RN. Left Ventricle * The left ventricle is normal in size. * There is moderate concentric left ventricular hypertrophy. * Left ventricular systolic function is normal. * Ejection Fraction = 55-60%. * The left ventricular wall motion is normal. Right Ventricle * The right ventricle is normal in size and function. Atria * The left atrium is moderately dilated. * The right atrium is mildly dilated. Mitral Valve * The mitral valve is grossly normal. * Significant mitral regurgitation is absent. Tricuspid Valve * The tricuspid valve anatomy is normal. * There is mild tricuspid regurgitation. * Right ventricular systolic pressure is normal. Aortic Valve * The aortic valve is normal in structure and function. * The aortic valve is trileaflet. * There is no significant aortic regurgitation. Great Vessels * The aortic root is normal size. Pericardium/Pleural * There is no pericardial effusion. Great Vessels * The inferior vena cava is mildly dilated. MMode 2D Measurements and Calculations IVSd 2.0 cm IVSs 2.0 cm LVIDd 2.7 cm LVIDs 1.8 cm LVPWd 1.7 cm LVPWs 2.0 cm IVS/LVPW 1.2 FS 32.9 % EDV(Teich) 27.6 ml ESV(Teich) 10.1 ml EF(Teich) 63.3 % EDV(cubed) 20.2 ml ESV(cubed) 6.1 ml EF(cubed) 69.7 % % IVS thick 2.9 % % LVPW thick 14.0 % LV mass(C)d 205.5 grams LV mass(C)dI 94.4 grams/m\S\2 LV mass(C)s 161.2 grams LV mass(C)sI 74.0 grams/m\S\2 SV(Teich) 17.5 ml SI(Teich) 8.0 ml/m\S\2 SV(cubed) 14.1 ml SI(cubed) 6.5 ml/m\S\2 Ao root diam 3.2 cm Ao root area 8.2 cm\S\2 ACS 2.3 cm LA dimension 4.4 cm LA/Ao 1.4 LVOT diam 2.0 cm LVOT area 3.2 cm\S\2 LVAd ap4 27.4 cm\S\2 LVLd ap4 6.8 cm EDV(MOD-sp4) 90.4 ml EDV(sp4-el) 93.7 ml LVAs ap4 17.5 cm\S\2 LVLs ap4 5.7 cm ESV(MOD-sp4) 45.8 ml ESV(sp4-el) 45.3 ml EF(MOD-sp4) 49.3 % EF(sp4-el) 51.6 % LVAd ap2 21.4 cm\S\2 LVLd ap2 6.8 cm EDV(MOD-sp2) 55.2 ml EDV(sp2-el) 57.6 ml LVAs ap2 13.6 cm\S\2 LVLs ap2 5.5 cm ESV(MOD-sp2) 29.2 ml ESV(sp2-el) 28.8 ml EF(MOD-sp2) 47.0 % EF(sp2-el) 50.0 % LVLd %diff -0.53 % EDV(MOD-bp) 71.0 ml LVLs %diff -5.06 % ESV(MOD-bp) 37.1 ml EF(MOD-bp) 47.8 % SV(MOD-sp4) 44.5 ml SI(MOD-sp4) 20.5 ml/m\S\2 SV(MOD-sp2) 26.0 ml SI(MOD-sp2) 11.9 ml/m\S\2 SV(MOD-bp) 33.9 ml SI(MOD-bp) 15.6 ml/m\S\2 SV(sp4-el) 48.4 ml SI(sp4-el) 22.2 ml/m\S\2 SV(sp2-el) 28.8 ml SI(sp2-el) 13.2 ml/m\S\2 Doppler Measurements and Calculations MV E max yoly 72.3 cm/sec MV P1/2t max yoly 88.0 cm/sec MV P1/2t 73.3 msec MVA(P1/2t) 3.0 cm\S\2 MV dec slope 351.6 cm/sec\S\2 MV dec time 0.31 sec PA V2 max 83.7 cm/sec PA max PG 2.8 mmHg PI max yoly 134.6 cm/sec PI max PG 7.2 mmHg PI dec slope 146.1 cm/sec\S\2 PI P1/2t 269.9 msec TR max yoly 221.4 cm/sec
[2017-07-24] MEDS ORDERED: GLUCOSE 40% GEL 15 GM TUBE PO PRN (13:45)
[2017-07-24] MEDS ORDERED: GLUCOSE 10 TABS/TUBE PO PRN (13:45)
[2017-07-24] MEDS ORDERED: GLUCAGON FOR INJ 1 MG VIAL SQ PRN (13:45)
[2017-07-24] MEDS ORDERED: DEXTROSE 50% 50 ML SYR IV PRN (13:45)
[2017-07-24] MEDS: APIXABAN 2.5 MG TAB PO SCH ×2 (13:54→20:45)
[2017-07-24] MEDS ORDERED: NURSING VERBAL MED ORDER ONE ×2 (14:00→14:30)
[2017-07-24] MEDS ORDERED: ZOLPIDEM TARTRATE 5 MG TAB PO PRN (19:15)
[2017-07-24] MEDS: DILTIAZEM SR 60 MG CAP PO SCH (19:58)
[2017-07-24] MEDS ORDERED: SIMVASTATIN 40 MG TAB PO SCH (21:00)
[2017-07-25] MEDS: DILTIAZEM SR 60 MG CAP PO SCH ×3 (00:32→11:54)
[2017-07-25 03:00] VITALS: BP 93/57; PULSE 83; TEMP 37.1; O2SAT 93
[2017-07-25 04:44] VITALS: BP 115/74; PULSE 118; TEMP 36.8; O2SAT 96
[2017-07-25 07:04] LABS: PTT PATIENT 27.5 SECONDS (21.0-31.0)
[2017-07-25 07:38] VITALS: BP 124/70; PULSE 97; TEMP 36.4; O2SAT 94
[2017-07-25] MEDS: APIXABAN 2.5 MG TAB PO SCH (08:07)
[2017-07-25] MEDS: METOPROLOL TARTRATE 50 MG TAB PO SCH (08:07)
[2017-07-25 11:30] VITALS: BP 128/64; PULSE 90; TEMP 36.5; O2SAT 98
--- NOTE | 2017-07-25 11:32 | Cardiology Follow-Up ---
Subjective Date of Service: Jul 25, 2017. Pt evaluation today including: conversation w/ patient, physical exam, chart review, lab review, review of studies, review of inpatient medication list, conversation w/ attending History of Present Illness The patient claims to be feeling well. She has ambulated on the ibanez at a fair pace without significant dyspnea, lightheadedness or palpitation. Overall energy level appears to be improved. Social History Smoking Status: Never Smoker History of Alcohol Use: No Review of Systems Respiratory: No cough, No sputum, No shortness of breath Cardiac: + problem reported (occasional flutter), No chest pain, No palpitations Objective Vital Signs Past 12 Hours Date Time Temp Pulse Resp B/P (MAP) Pulse Ox O2 Delivery O2 Flow Rate FiO2 07/25/17 08:00 Room Air 07/25/17 07:38 36.4 97 18 124/70 (88) 94 Room Air 07/25/17 04:44 36.8 118 18 115/74 (88) 96 Room Air 07/25/17 04:00 Room Air 07/24/17 23:59 94 Room Air 07/24/17 23:41 37.0 93 19 127/84 (98) 94 Room Air Last Recorded Weight-Kilograms: 104.100 Physical Exam Constitutional: General Apperance: heathly-appearing, well-nourished, obese Level of Distress: NAD Lungs: Respiratory effort: no dyspnea, good air movement Auscultation: breath sounds normal, CTA except as noted, no wheezing, no rales/crackles, no rhonchi Cardiovascular: Apical Impulse: not displaced Heart Auscultation: normal S1, normal S2, no murmurs, no rubs, no gallops, irregular rate rhythm Peripheral Pulses: Bruits: none appreciated Dorsalis Pedis Pulse: normal on the left, normal on the right Data Laboratory Results: Last 24 Hours Test 07/25/17 06:26 Activated Partial Thromboplast Time 27.5 SECONDS Partial Thromboplastin Ratio 1.1 Telemetry reviewed: Atrial fibrillation with rapid ventricular response Assessment and Plan 1. Atrial fibrillation: Patient's echocardiogram suggests an element of occult hypertension and there is left atrial enlargement. This morning he feels quite well. She has been ambulatory but continues to have high ventricular rates. Last evening her diltiazem infusion was discontinued and she was started on oral regimen. I think continuation of her diltiazem and metoprolol will likely be adequate. We will have a better opportunity to assess the efficacy after a few doses. In general however she is feeling quite well. She has been started on Eliquis and this should be continued indefinitely. She continues to have some symptoms once her rate control is adequate we could plan for an outpatient cardioversion. In any event she will need follow-up in the outpatient setting in about 1 month for discussion of her therapy, symptoms and any additional options.
[2017-07-25] MEDS ORDERED: ZCR40 PO (12:50)
[2017-07-25] MEDS ORDERED: METO50TA16 PO (12:50)
[2017-07-25] MEDS ORDERED: APIX1TAB3 PO (12:50)
[2017-07-25] MEDS ORDERED: CRDCD/180 PO (12:50)
--- NOTE | 2017-07-25 13:05 | Discharge Instructions ---
Discharge Instructions Date of Service Jul 25, 2017. Admission Reason for Admission: New Onset A-Fib Discharge Discharge Diagnosis / Problem: New onset Atrial fibrillation Discharge Goals Goal(s): Decrease discomfort, Improve function, Increase independence, Improve disease control Activity Recommendations Activity Limitations: resume your previous activity Lifting Limitations: no more than 25 pounds, gradually increase as tolerated Exercise/Sports Limitations: none, as tolerated May Resume Sexual Activity: when tolerated Shower/Bathe: no limitations Driving or Machine Use: no limitations Instructions / Follow-Up Instructions / Follow-Up You were admitted to [facility] with palpitations, flutter and diagnosed with new onset atrial fibrillation. During your stay here you were treated with rate controlling medication, and anticoagulation. You were seen by our medical supervisor service. Imaging studies which were completed include Echocardiogram, and were normal showing no wall motion abnormalities or valvular dysfunction. You have a new diagnosis of Diabetes Type II: You have been given a glucometer for checking your blood glucose with a small supply of testing strips. Please check glucose once in the morning and once at night and record this to show to your PCP and the salvage repairer upon follow up appointments. Continue new dietary recommendations as per your diabetic handout: fresh vegetables, portion control and a daily exercise regimen are essential to helping bring A1C down. Your A1C is 6.2 - this should be checked every 3 months by your PCP. Medications: Continue taking your medications as prescribed: Cardizem long acting 180 mg once daily at night - (rate controlling agent), Metoprolol 50 mg twice daily (rate controlling agent) Eliquis 5 mg twice daily (anticoagulant/ ie. blood thinner) Simvastatin 40 mg in the evening ( cholesterol agent) Appointments: Follow up with PCP within 1 week. Follow up with cardiology within 1 week. Follow up with salvage repairer within 1-2 weeks. . Current Hospital Diet Patient's current hospital diet: AHA Diet (Heart Healthy), Diabetes Type 2 Diet Discharge Diet Recommended Diet: AHA Diet (Heart Healthy), Diabetes Type 2 Diet Pending Studies Studies pending at discharge: no Laboratory Results Hemoglobin A1c Test 07/24/17 06:31 Range/Units Estimated Average Glucose 131 mg/dl Hemoglobin A1c 6.2 H 4.5-5.6 % Lipid Panel Test 07/23/17 13:51 Range/Units Triglycerides Level 183 H 0-150 mg/dl Cholesterol Level 225 H 0-200 mg/dl HDL Cholesterol 52 mg/dl Cholesterol/HDL Ratio 4.3 LDL Cholesterol, Calculated 136 mg/dl Medical Emergencies . Who to Call and When: Medical Emergencies: If at any time you feel your situation is an emergency, please call 911 immediately. . Non-Emergent Contact Non-Emergency issues call your: Primary Care Provider Call Non-Emergent contact if: you have a fever, temperature is above 100.5, your pain is not controlled, your pain is worsening, your pain is unusual for you, your pain is concerning you, you have any medication questions other concerns with your health. Call 911 or go directly to the Emergency Department if you experience any of the following: Chest pain, chest tightness, shortness of breath, abdominal pain , lightheadedness, dizziness, gastrointestinal bleeding, or have any other concerns regarding your health. . Past History Medical & Surgical History: (1) New onset a-fib (2) Obesity (BMI 30.0-34.9) (3) HLD (hyperlipidemia) (4) DM II (diabetes mellitus, type II), controlled . "Provider Documentation" section prepared by Leigh Marroquin. . [place] Drug Monitoring Program Search Results: no issues identified
[2017-07-25 13:10] VITALS: BP 128/64; PULSE 90; TEMP 36.5; O2SAT 98
--- NOTE | 2017-07-25 15:17 | Discharge Summary ---
Discharge Summary Date of Service Jul 25, 2017. Discharge Summary Admission Date: Jul 24, 2017 at 13:24 Discharge Date: Jul 25, 2017 Discharge Disposition: Home Principal Diagnosis: Afib with RVR Problems/Secondary Diagnoses: Medical Problems: (1) Arthritis of spine (2) DM II (diabetes mellitus, type II), controlled (3) HLD (hyperlipidemia) (4) New onset a-fib (5) Obesity (BMI 30.0-34.9) Procedures: CHEST ONE VIEW PORTABLE 07/13/17 IMPRESSION: 1. Mild prominence of pulmonary vasculature could suggest volume overload or elevated left heart pressure. 2. Mildly low lung volumes with hypoventilatory changes. Consultations: Cardiology roofer helper Medication Reconciliation New Medications: Diltiazem Hcl Coated Beads (Cardizem Cd) 180 Mg Cap 1 CAP PO DAILY for 30 Days, #30 CAP 0 Refills Apixaban (Eliquis) 5 Mg Tab 5 MG PO BID for 30 Days, #60 TAB Metoprolol Tartrate (Lopressor) (Lopressor) 50 Mg Tab 50 MG PO BID for 30 Days, #60 TAB Simvastatin (Simvastatin) 40 Mg Tab 40 MG PO PM for 30 Days, #30 TAB Continued Medications: Ascorbic Acid (Vitamin C) 500 Mg Tab DAILY Calcium/Vitamin D (Os-Adam 500 Plus D) Tab 1 TAB PO DAILY, TAB Cholecalciferol (Vitamin D 400 Iu) 400 Unit Cap 400 INTER.UNIT PO DAILY, CAP Diclofenac (Voltaren) 50 Mg Tabec 50 MG PO BID, TAB Fish Oil ([place]-3) 1 Ea Cap 1 CAP PO DAILY, CAP Multivitamin (Multivitamin) Tab 1 TAB PO DAILY, TAB Discharge Exam The patient was seen and examined this morning. Pt reports doing well today. She has been ambulating the halls without difficulty. She denies any palpitation , flutter, chest pain, or shortness of breath. Her daughter was present at bedside during exam. Medications were gone over extensively with the the patient and family, and all their questions and concerns were addressed. ROS: Constitutional: No fever, No chills, No sweats, No fatigue Eyes: No redness, No diplopia ENT: No nasal symptoms, No sore throat Respiratory: No cough, No sputum, No shortness of breath Cardiovascular: + problem reported (occasional flutter), No chest pain, No palpitations Abdomen: No pain, No nausea, No vomiting, No diarrhea, No constipation Musculoskeletal: No joint pain, No muscle pain, No swelling Female : No dysuria Neurologic: No weakness, No numbness/tingling Psychiatric: No depression symptoms, No anxiety Endo: No fatigue Physical Exam: General Appearance: WD/WN, no apparent distress Eyes: PERRL, EOMI ENT: hearing grossly normal, pharynx normal Neck: no adenopathy, no JVD Respiratory/Chest: lungs clear, no respiratory distress, no accessory muscle use Cardiovascular: no JVD, no murmur, + irregularly irregular (rate controlled in 80s ) Abdomen: normal bowel sounds, non tender, soft Extremities: non-tender, no pedal edema, no calf tenderness Neurologic/Psychiatric: alert, normal mood/affect, oriented x 3 Skin: normal color, warm/dry Hospital Course 76-year-old female presented to the emergency room with new onset atrial fibrillation with RVR New onset atrial fibrillation with RVR Elevated BP - resolved - Admit patient to telemetry under observation status - 2D echo complete: * -- Conclusions -- * There is moderate concentric left ventricular hypertrophy. * Left ventricular systolic function is normal. * The left atrium is moderately dilated. * The right atrium is mildly dilated. * Right ventricular systolic pressure is normal. * The inferior vena cava is mildly dilated. - Upon admission benefits and risks of anticoagulation were discussed - I readdressed anticoagulation with the patient. Case management has checked copay for Eliquis and this is $100 per month, the patient is agreeable to paying this as she does not want to go on coumadin and require frequent INR checks. Appreciate cardiology recs - Continue Eliquis 5 mg BID - Cardizem drip off and transitioned to PO, continue cardizem LA 180 mg daily per cardiology. Can also continue oral metoprolol 50 mg BID per cardiology - Troponin x 2 negative - NTG SL/topical prn CP HLD - Lipids elevated with cholesterol at 225, triglycerides also elevated at 183 - Continue simvastatin 40 mg po HS DM II - New onset - Check hemoglobin A1c= 6.5 - Glucose has been running around 130s-140s. Will switch diet to a heart healthy diabetic diet. Will need to reinforce diet and exercise with the patient prior to discharge home. - Check accuchecks achs while here. - Pt sent home with glucometer and small supply of testing strips. She has been asked to check her glucose twice daily and record the values to show table saw operator/pcp. Arthritis - Pain management - pt does follow as an outpatient. recently had cortisone injection and likely elevated glucose slightly. Mild obesity Clinically suspected obstructive sleep apnea DVT ppx: heparin, teds, scds CODE STATUS: FULL Disposition: From home, discharge home today Supervising Note Dr. Butler I performed a history and physical examination on the patient. I reviewed above note and agree with it. I discussed plan with APC and patient. During my face to face encounter with the patient, I answered all of the patient's questions. Patient will take above medicine to control her heart rate. She will take metoprolol BID with Cardizem 180mg only at bedtime. Total Time Spent: Greater than 30 minutes This includes examination of the patient, discharge planning, medication reconciliation, and communication with other providers. Discharge Instructions Please refer to the electronic Patient Visit Report (Discharge Instructions) for additional information. Follow-Up Follow up with your Primary Care Provider within 1 week. Follow up with cardiology within 1 week. Follow up with table saw operator within 1-2 weeks. Additional Copies To Sofia Han
== END 2017-07-25 14:44 | disposition home or self-care (01) | DRG 310 ==
LOC: C.EDB 13:20 → EDBD 13:20 → C.2T 15:51 → ENRESERV 15:57 → OBSVTOIN 07-24 13:24
PROVIDERS: ADMIT Internal Medicine; ATTEND Internal Medicine Sports Medicine
DX: I48.91 Unspecified atrial fibrillation (principal); E66.9 Obesity, unspecified; M46.90 Unspecified inflammatory spondylopathy, site unspecified; G47.33 Obstructive sleep apnea (adult) (pediatric); E11.9 Type 2 diabetes mellitus without complications; Z68.30 Body mass index [BMI] 30.0-30.9, adult